=== PATIENT | male | born 1940 | race Caucasian/White ===

== ENCOUNTER 2018-06-27 15:53 | Inpatient (IN) ==
[2018-06-27] MEDS ORDERED: TYLENOL PO PRN (16:42)
--- NOTE | 2018-06-27 17:22 | Diag Imaging Result Doc PS360 ---
HIP 1 VIEW RIGHT - 06/27/2018 INDICATION: right hip fx TECHNIQUE: COMPARISON: None FINDINGS: Detail is extremely poor. There appears to be subcapital right hip fracture. IMPRESSION: Very poor x-ray. Electronically signed by Enrique Ruff 06/27/2018 5:20 PM
--- NOTE | 2018-06-27 17:22 | Diag Imaging Result Doc PS360 ---
CHEST-PORTABLE - 06/27/2018 INDICATION: r/o pna COMPARISON: None FINDINGS: There is subtle infiltrate throughout the left lung base and system with pneumonia. Arch size is top normal. No pneumothorax or pleural effusion. IMPRESSION: Left basilar bronchopneumonia. Electronically signed by Enrique Ruff 06/27/2018 5:19 PM
--- NOTE | 2018-06-27 17:29 | HISTORY AND PHYSICAL ---
HISTORY OF PRESENT ILLNESS: Mr. Brown is from [facility]. He has been there a couple years. Apparently he fell and struck his right hip and has a right hip fracture Dr. Cuenca to hopefully repair the fracture in the morning. PAST MEDICAL HISTORY: 1. Dementia, which he has had for several years. This history is given by his . 2. Anxiety disorder with panic attacks. 3. Peptic ulcer disease. 4. Gastric or peptic ulcer disease. 5. He has had a CVA in the past. 6. Hypertension. 7. Hypercholesterolemia, which is controlled. SURGICAL HISTORY: Inguinal hernia repair in I think February 2000. He had some axillary cysts removed, I think from the right axilla. SOCIAL HISTORY: Quit smoking 30 years ago. History of heavy alcohol, but has not drank in several years. He is at [facility]. REVIEW OF SYSTEMS: Constitutional: She has not reported anything that she has noticed, such as weight gain or loss. No fever or chills. HEENT: Change in vision or hearing acuity. Neck: No complaints of neck pain. Respiratory: No increased work of breathing or dyspnea. Cardiovascular: No chest pain or tachy palpitation. Gastrointestinal and Genitourinary: She has not mentioned any change in bowel or bladder habits. Endocrinologic/hematologic : No significant history. She did report that his ankles do swell, they do have a little swelling now, and they have been that way for several years. PHYSICAL EXAMINATION: VITAL SIGNS: Temperature 97.8 degrees, pulse 86, respirations 20, blood pressure 148/57. HEENT: Pupils are equal and round. LUNGS: Clear in all lung gay. CARDIOVASCULAR: Regular rhythm and rate without murmur or S3. ABDOMEN: Soft, nondistended. SKIN: Warm and dry. EXTREMITIES: He does have just trace edema that is confined to the ankles. DIAGNOSTIC STUDIES: Lab is pending at this time. ASSESSMENT AND PLAN: 1. Right hip fracture. Hopefully, he can be ready for open reduction, internal fixation in the morning with Dr. Cuenca. 2. History of dementia. 3. History of anxiety. 4. Past history of cerebrovascular accident. 5. Hypertension. 6. Hypercholesterolemia. We will check general lab, electrolytes, CBC, T4 and TSH, B12, and folate. Make sure he has a chest x-ray and EKG. We will check pro-time and PTT. He is not on any anticoagulant, I do not believe. Review of his home medications. I do not know that we have those yet. ALLERGIES: He is allergic to ibuprofen but I think she was referring to his gastric bleeding from ibuprofen. No other allergies. cc: Edu Ruelas MD MTDD
[2018-06-27 17:45] LABS: BASO# 0.03 X1000 (0.0-0.2); BASO% 0.5 % (0.0-0.8); HEMATOCRIT 29.1 % (42.0-52.0); HEMOGLOBIN 9.2 g/dL (14.0-18.0); LYMPH# 1.06 X1000 (1.2-3.4); LYMPH% 18.6 % (20.5-51.1); MCHC 31.6 g/dL (33-37); MCV 88.7 FL (81-99); MONO# 1.02 X1000 (0.11-0.59); MONO% 17.9 % (1.7-9.3); MPV 9.1 FL (7.4-10.4); NEUT# 3.19 X1000 (1.4-6.5); PLT 321 X1000 (130-400); RBC 3.28 XMIL (4.7-6.1)
[2018-06-27 17:52] LABS: INR 1.06; PROTIME 14.7 Seconds (11.0-16.0)
[2018-06-27 17:53] LABS: PTT 34.5 Seconds (22.3-41.8)
[2018-06-27 18:03] LABS: HEMOGLOBIN A1C 4.8 % (4.8-6.0)
[2018-06-27 18:06] LABS: URINE SOURCE CATH
[2018-06-27 18:27] LABS: BILIRUBIN URINE NEGATIVE (NEGATIVE); BLOOD URINE SMALL (NEGATIVE); COLOR YELLOW; GLUCOSE URINE NEGATIVE (NEGATIVE); KETONE URINE NEGATIVE (NEGATIVE); LEUKOCYTES URINE NEGATIVE (NEGATIVE); NITRITE URINE NEGATIVE (NEGATIVE); PROTEIN URINE 50 mg/dL (NEGATIVE); SP GRAVITY URINE 1.027; TURBIDITY URINE CLEAR (CLEAR); UROBILINOGEN URINE 4 mg/dL (NORMAL)
[2018-06-27 18:27] LABS: AGAP 9; ALB/GLOB RATIO 0.8; ALBUMIN 2.8 g/dL (3.5-5.0); ALKALINE PHOSPHATASE 82 U/L (32-122); BUN 25 mg/dL (8-22); CALCIUM 8.7 mg/dL (8.8-10.2); CHLORIDE 100 mmol/L (98-107); COSMO 272; ESTIMATED GFR > 60; GLUCOSE 115 mg/dL (70-104); GOT 32 U/L (10-34); GPT 22 U/L (10-44); POTASSIUM 3.9 mmol/L (3.5-5.1); SODIUM 133 mmol/L (136-145); TCO2 24 mmol/L (25-35); TOTAL BILIRUBIN 0.57 mg/dL (0.20-1.00); TOTAL PROTEIN 6.5 g/dL (6.3-8.3)
[2018-06-27 18:30] LABS: URINE BACTERIA NEGATIVE /HPF; URINE RBC <10 /HPF (<10); URINE WBC <10 /HPF (<10)
[2018-06-27 18:43] LABS: FREE T4 1.46 ng/dL (0.93-1.70)
[2018-06-27 18:49] LABS: UR EPITHELIAL CELLS <10 /HPF (<10)
[2018-06-27] MEDS ORDERED: CALMOSEPTINE OINTMENT TOP PRN (19:16)
[2018-06-27] MEDS: NS 1,000 ML IV SCH (19:43)
[2018-06-27] MEDS: MORPHINE IV PRN (22:45)
[2018-06-28] MEDS: MORPHINE IV PRN ×4 (01:46→09:38)
[2018-06-28] MEDS: NS 1,000 ML IV SCH (06:40)
[2018-06-28 06:49] LABS: BASO# 0.01 X1000 (0.0-0.2); BASO% 0.2 % (0.0-0.8); EOS# 0.25 X1000 (0.0-0.7); EOS% 4.1 % (0.0-10.0); HEMATOCRIT 26.4 % (42.0-52.0); HEMOGLOBIN 8.5 g/dL (14.0-18.0); LYMPH# 1.12 X1000 (1.2-3.4); LYMPH% 18.5 % (20.5-51.1); MCH 28.2 PG (27-31); MCHC 32.2 g/dL (33-37); MCV 87.7 FL (81-99); MONO# 1.23 X1000 (0.11-0.59); MONO% 20.3 % (1.7-9.3); MPV 8.9 FL (7.4-10.4); NEUT# 3.46 X1000 (1.4-6.5); NEUT% 56.9 % (42.2-75.2); PLT 308 X1000 (130-400); RBC 3.01 XMIL (4.7-6.1); RDW 12.7 % (11.5-14.5); WBC 6.07 X1000 (4.8-10.8)
[2018-06-28 06:50] LABS: INR 1.1; PROTIME 15.1 Seconds (11.0-16.0)
[2018-06-28 06:51] LABS: PTT 36.5 Seconds (22.3-41.8)
--- NOTE | 2018-06-28 07:17 | EKG Report ---
Test Performed on : 06/27/2018 5:35:45 PM Test Reason : preop hip sx Blood Pressure : / mmHG Vent. Rate : 098 BPM Atrial Rate : 098 BPM P-R Int : 144 ms QRS Dur : 076 ms QT Int : 342 ms P-R-T Axes : 073 057 069 degrees QTc Int : 436 ms Normal sinus rhythm. Normal ECG No previous ECGs available Confirmed by Abdulkadir HAWTHORNE, Cristian Ty ([id number]) on 06/29/2018 6:47:17 AM
[2018-06-28 07:18] LABS: AGAP 9; ALB/GLOB RATIO 0.8; ALBUMIN 2.6 g/dL (3.5-5.0); ALKALINE PHOSPHATASE 71 U/L (32-122); BUN 21 mg/dL (8-22); CALCIUM 8.2 mg/dL (8.8-10.2); CHLORIDE 104 mmol/L (98-107); COSMO 275; CREATININE 0.9 mg/dL (0.7-1.2); ESTIMATED GFR > 60; GLUCOSE 98 mg/dL (70-104); GOT 30 U/L (10-34); GPT 20 U/L (10-44); MAGNESIUM 1.8 mg/dL (1.5-2.7); POTASSIUM 4.1 mmol/L (3.5-5.1); SODIUM 136 mmol/L (136-145); TCO2 23 mmol/L (25-35); TOTAL BILIRUBIN 0.64 mg/dL (0.20-1.00)
--- NOTE | 2018-06-28 07:30 | CONSULTATION ---
DATE OF CONSULTATION: 06/28/2018 HISTORY OF PRESENT ILLNESS: Mr. Brown is a 77-year-old male who presented to my clinic yesterday afternoon with right hip pain. He resides at [facility], and there had been a fall, and he could not bear weight and so they brought him into the clinic. Most of his pain is at the right hip. Pain is worse with any movement. In the clinic, I diagnosed him with a displaced femoral neck fracture and sent him over to admissions to be admitted per the hospitalist service. PAST MEDICAL HISTORY: Dementia, anxiety, peptic ulcer disease, cerebrovascular accident in the past, hypertension. PAST SURGICAL HISTORY: Hernia repair. SOCIAL HISTORY: He denies any smoking or alcohol use. He resides at [facility]. MEDICATIONS: Per the medical record. ALLERGIES: His allergies are to ibuprofen. REVIEW OF SYSTEMS: Positive for right hip pain. All other systems are essentially negative. PHYSICAL EXAMINATION: General: A well-developed male. He is in no acute distress this morning. HEENT and Neck: Head and neck appear normocephalic, atraumatic. Respirations: Nonlabored breathing. Cardiovascular: Regular pulse. Abdomen: Nondistended. Extremities: Right lower extremity exam, he has the hip flexed. It is tender to palpation at the hip. He is able to dorsiflex and plantar flex his toes and his ankle. He has good sensation to light touch to the toes. No skin ulcerations or abrasions seen around the hip. RADIOGRAPHS: AP radiograph from the hospital here shows a displaced femoral neck fracture. ASSESSMENT: Right femoral neck fracture. PLAN: We will plan on a right hip hemiarthroplasty today. I went over with him and his the procedure, risks, benefits, potential complications. Risks include, but are not limited to, infection, wound healing problems, damage to nerves, arteries, veins, numbness, dislocation, fracture, implant failure, DVT and anesthesia related risks. After discussing these with the patient and his , both expressed understanding and wished to proceed, so we will get everything set for today. He is n.p.o. cc: Wolf Cuenca MD
--- NOTE | 2018-06-28 09:26 | PROGRESS NOTE ---
DATE: 04/27/2019 Mr. Brown did not sleep much last night. He appears comfortable this morning. OBJECTIVE: VITAL SIGNS: Remains afebrile. Temperature 99 degrees, pulse 84, respirations 16, blood pressure 154/70. HEENT: Pupils are equal and round. LUNGS: Clear in all lung gay. CARDIOVASCULAR: Regular rhythm and rate without murmur or S3. ABDOMEN: Soft. SKIN: Warm and dry. Urine output 1100 mL. ASSESSMENT AND PLAN: 1. Right femoral neck fracture. Plan is right hip hemiarthroplasty today. 2. Dementia. 3. Anxiety. 4. History of cerebrovascular accident. 5. Hypertension. 6. Hypercholesterolemia. Hematocrit is 26, hemoglobin 8.5 and we will follow that. Renal function looks good. cc: Edu Ruelas MD
[2018-06-28] MEDS ORDERED: FENTANYL ONE (14:42)
[2018-06-28] MEDS ORDERED: DIPRIVAN 1% ONE (14:43)
[2018-06-28] MEDS ORDERED: XYLOCAINE-MPF 2% ONE (14:43)
[2018-06-28] MEDS ORDERED: KEFZOL 1 GM/D5W 1 GM/50 ML IVPB ONE (14:59)
[2018-06-28] MEDS ORDERED: SALINE LOCK IV FLUID XX ONE (16:30)
[2018-06-28] MEDS ORDERED: OXY IR PO PRN (16:30)
[2018-06-28] MEDS: DILAUDID ONE ×4 (16:50→17:03)
--- NOTE | 2018-06-28 17:22 | Diag Imaging Result Doc PS360 ---
EXAM: PELVIS HISTORY: postop TECHNIQUE: Pelvis single view COMPARISON: 06/27/2018 FINDINGS: Interval replacement of the right hip. There appears to be good positioning in the acetabulum and upper femoral shaft. There are lateral skin allyn. IMPRESSION: Recently replaced right hip. Electronically signed by Tuan Celis 06/28/2018 5:20 PM
--- NOTE | 2018-06-28 19:45 | OPERATIVE NOTE ---
PROCEDURE DATE: 06/28/2018 PREOPERATIVE DIAGNOSIS: Right displaced femoral neck fracture. POSTOPERATIVE DIAGNOSIS: Right displaced femoral neck fracture. PROCEDURE: Right hip hemiarthroplasty. SURGEON: Dr. Wolf Cuenca. FINANCIAL SERVICES COUNSELOR: SATHYA Hand, who was an integral part of the case, helping with all aspects of the case, helped to increase our OR efficiency greatly. ANESTHESIA: General with LMA. BLOOD LOSS: About 600 mL. IMPLANTS: DePuy Corail stem size 13 and a 52 head. DISPOSITION: To PACU, hemodynamically stable. INDICATION FOR PROCEDURE: Mr. Brown is a 77-year-old male, really non ambulator, he mainly just transfers, end up falling and fractured his right hip. He was admitted per the hospitalist service. I discussed with his family about operative intervention. They expressed their understanding and wished to proceed. DESCRIPTION OF PROCEDURE: Mr. Brown was identified in the preop holding area. The right hip was marked as the correct surgical site. He was then wheeled to the operating room, placed supine on the operating table. All bony prominences well padded. He was induced under general anesthesia. LMA was placed. The right lower extremity was then prepped with chlorhexidine, gluconate, scrub. He was then flipped to the left lateral decubitus position. Axillary roll was placed. Right lower extremity was then prepped with chlorhexidine, gluconate scrub, and then ChloraPrep, and draped in normal sterile fashion. He was extremely tight, even trying a raises leg. He did have a hip flexion contracture but also an adduction flexion contracture. Surgical pause was performed. We identified the correct patient, correct side, and the correct procedure. Preop antibiotics were given. I started with a standard posterior approach to the hip. Dissection was carried down to the deep fascia. I went through the deep fascia. We came down on the short external rotators. I came to the short external rotators and then came down to the neck of the femur. I T'd the capsule and was able to identify the fracture really well. I then got the head out and sized it to a 52. I sequentially broached up to a size 13. First we tried the trial but it was very tough to get as he was really contracted down. So I ended up working with the broaches and ended getting that 13 sunk down a little bit further and was able to then get it reduced. We decided to go with a size 13 stem and then a 52 head. We irrigated everything copiously with normal saline. I then was able to get the stem in and then put the head on, we reduced it. He was still pretty tight in abduction but he was very stable all the way up through hip flexion and internal rotation. He did have a hip flexion contracture as well, but I could get him out pretty straight on that hip. I then repaired the capsule with 0 Vicryl. I repaired the deep fascia layer with 0 Vicryl, 2-0 Vicryl for the subcutaneous, and allyn on the skin. Adaptic, 4 x 4s, ABD, and an island dressing was applied. He was then awoke from general anesthesia, moved to his own bed, and taken to the PACU in stable condition. Postoperatively, he will be weight-bear as tolerated to the right lower extremity. I will see him tomorrow morning on rounds. cc: Wolf Cuenca MD
[2018-06-29] MEDS: KEFZOL 1 GM/D5W 1 GM/50 ML IVPB IV SCH ×3 (00:02→16:00)
[2018-06-29] MEDS: MORPHINE IV PRN ×7 (00:13→21:37)
[2018-06-29] MEDS: NS 1,000 ML IV SCH ×3 (04:38→17:12)
[2018-06-29 07:06] LABS: HEMATOCRIT 25.5 % (42.0-52.0); HEMOGLOBIN 8.2 g/dL (14.0-18.0)
[2018-06-29 07:26] LABS: AGAP 9; BUN 26 mg/dL (8-22); CALCIUM 8.4 mg/dL (8.8-10.2); CHLORIDE 101 mmol/L (98-107); COSMO 277; CREATININE 0.9 mg/dL (0.7-1.2); ESTIMATED GFR > 60; GLUCOSE 143 mg/dL (70-104); POTASSIUM 4.6 mmol/L (3.5-5.1); SODIUM 135 mmol/L (136-145); TCO2 25 mmol/L (25-35)
--- NOTE | 2018-06-29 08:04 | PROGRESS NOTE ---
DATE: 06/29/2018 SUBJECTIVE: Mr. Brown is lying in bed this morning. Pain seems to be well controlled. OBJECTIVE: Right lower extremity: Dressing is clean, dry, and intact. He is able to wiggle his toes this morning very well. ASSESSMENT: Status post right hip hemiarthroplasty. PLAN: Mr. Brown is weight bear as tolerated right lower extremity. I am okay with physical therapy working to get him mobilized. Buck Swamper will be seeing him for discharge placement. From orthopedic standpoint, I am okay with him getting up, seated to a bedside chair, and they can get him up for transfers. Apparently, he has not really walked in the past several months, even before he fractured this hip. It is going to be a little bit difficult to mobilize him, but I do want physical therapy working to get him out of bed. cc: Wolf Cuenca MD
--- NOTE | 2018-06-29 15:28 | PROGRESS NOTE ---
DATE: 06/29/2018 SUBJECTIVE: Mr. Brown is resting comfortably. He had his surgery. His granddaughter was at the bedside. He appears comfortable, breathing comfortably. Sleeping at the present time. OBJECTIVE: Vital Signs: Temperature 98.7, pulse 109, respirations 24, blood pressure 165/73. HEENT: Pupils are equal and round. Lungs: Clear in all lung gay. Cardiovascular: Regular rhythm and rate without murmur or S3. Abdomen: Soft. Skin: Warm and dry. Urine Output: 1800 mL. ASSESSMENT AND PLAN: 1. Status post right hip hemiarthroplasty, doing well. Begin physical therapy and get him mobilized. 2. Postoperative acute blood loss anemia. Hematocrit stable at 25, hemoglobin 8.2. We will watch this. 3. History of dementia. 4. Anxiety. 5. History of cerebrovascular accident. 6. Hypertension. 7. Hypercholesterolemia. Continue present medications. cc: Edu Ruelas MD
[2018-06-29] MEDS: HALDOL IV PRN (18:05)
[2018-06-30] MEDS: NS 1,000 ML IV SCH ×2 (04:37→17:00)
[2018-06-30 06:34] LABS: HEMATOCRIT 23.2 % (42.0-52.0); HEMOGLOBIN 7.5 g/dL (14.0-18.0)
[2018-06-30] MEDS: MORPHINE IV PRN ×6 (07:50→20:59)
[2018-06-30] MEDS: HALDOL IV PRN ×3 (09:38→21:34)
--- NOTE | 2018-06-30 10:33 | PROGRESS NOTE ---
DATE: 06/30/2018 SUBJECTIVE: Mr. Brown feels a little warm to touch. He otherwise is awake and seems to be alert. He is oriented to person. I do not know that he knows he is in the hospital. OBJECTIVE: Temperature 97.9 degrees, pulse 106, respirations 20, blood pressure 172/85. HEENT: Pupils are equal and round. Lungs: Clear in all lung gay. Cardiovascular: Regular rhythm and rate without murmur or S3. Abdomen: Soft. Skin: Warm and dry. ASSESSMENT AND PLAN: 1. Status post right hip hemiarthroplasty doing well. Continue physical therapy. Trying to get him back to [place] to try and go to rehab in [place]. He is from [place] long-term. 2. Postoperative acute blood loss anemia. Hematocrit and hemoglobin stable. Hematocrit is 23 and hemoglobin 7.5. 3. History of dementia. 4. Anxiety. 5. History of cerebrovascular accident. 6. Hypertension. 7. Hypercholesterolemia. 8. He had a chest x-ray back on the , and questionable left basilar bronchial pneumonia so we will repeat another chest x-ray today. 9. Review of his orders. I think we will put him on some Rocephin 1 g IV daily. Repeat another chest x-ray this morning. cc: Edu Ruelas MD
--- NOTE | 2018-06-30 10:48 | Diag Imaging Result Doc PS360 ---
EXAM: CHEST-PORTABLE HISTORY: pneumonia TECHNIQUE: Portable chest single view COMPARISON: 06/27/2018 FINDINGS: The lungs are well expanded. The heart is not enlarged. The vessels are mildly distended. No consolidation. Minimal increased markings in the left lung remain.. No effusion identified. IMPRESSION: Mild pulmonary edema, but no definite pneumonia Electronically signed by Tuan Celis 06/30/2018 10:46 AM
[2018-06-30] MEDS: ROCEPHIN 1 GM in NS 50 ML IV SCH (11:34)
[2018-06-30] MEDS: PERIDEX MT SCH ×2 (11:40→21:00)
[2018-06-30] MEDS: ZOFRAN IV PRN (20:59)
[2018-06-30] MEDS ORDERED: MELATONIN PO SCH (21:30)
[2018-07-01] MEDS: ZOFRAN IV PRN ×2 (03:53→20:04)
[2018-07-01] MEDS: MORPHINE IV PRN ×3 (03:53→20:04)
[2018-07-01] MEDS: NS 1,000 ML IV SCH ×3 (03:54→20:03)
[2018-07-01 06:54] LABS: HEMATOCRIT 21.7 % (42.0-52.0); HEMOGLOBIN 7.1 g/dL (14.0-18.0)
[2018-07-01] MEDS: ROCEPHIN 1 GM in NS 50 ML IV SCH ×2 (08:12→10:19)
[2018-07-01] MEDS: PERIDEX MT SCH ×2 (08:15→19:40)
[2018-07-01] MEDS: HALDOL IV PRN ×2 (08:18→17:09)
--- NOTE | 2018-07-01 09:37 | PROGRESS NOTE ---
DATE: 07/01/2018 SUBJECTIVE: Mr. Brown had a pretty good night. Did not have much delirium or agitation. This morning he appears to be breathing comfortably. He remains afebrile. He is oriented to person. Not sure he knows where he is. Does not know the time or date. OBJECTIVE: Vital signs: Temp 98.6 degrees, pulse 107, respirations 22, blood pressure 167/67. HEENT: His pupils are equal. Neck: No distended neck veins. Lungs: Clear in all lung gay. Cardiovascular: Regular rhythm and rate without murmur or S3. Abdomen: Soft. Nondistended. Extremities: No pedal edema. Urine output was 4000 mL. LABORATORY: Hematocrit from yesterday was 21, hemoglobin 7.1 which is stable. ASSESSMENT AND PLAN: 1. Status post right hip hemiarthroplasty. Doing well. Continue physical therapy. [facility] and get [facility]. He has underlying dementia and long history of anxiety. 2. Postoperative acute blood loss. Hematocrit and hemoglobin are stable. Hematocrit is 23 and hemoglobin 7.5. 3. History of dementia which is fairly progressed. Doing very well from that standpoint. 4. Anxiety. 5. History of cerebrovascular accident in the past. 6. Hypertension. 7. Hypercholesterolemia. 8. We have followed up on his chest x-ray and there is mild pulmonary edema but no sign infiltrate and no sign of infection. 9. Review of his orders. He gets oxycodone IR 5 mg q.3 hours p.r.n. and he is getting normal saline at 85 mL an hour, ceftriaxone 1 g q.24 hours. I am going to decrease the normal saline. cc: Edu Ruelas MD
[2018-07-02] MEDS: MORPHINE IV PRN ×2 (01:26→06:21)
[2018-07-02] MEDS: PERIDEX MT SCH ×2 (04:01→10:44)
[2018-07-02] MEDS: ZOFRAN IV PRN (06:21)
[2018-07-02] MEDS: ROCEPHIN 1 GM in NS 50 ML IV SCH (10:55)
--- NOTE | 2018-07-02 13:36 | DISCHARGE SUMMARY ---
ADMISSION DATE: 06/27/2018 DISCHARGE DATE: 07/02/2018 DISPOSITION: [facility], which is where he is from. HISTORY: This is a 77-year-old white male. He has been at [facility] for a couple of years. He fell and struck his right hip and had a right hip fracture. Dr. Cuenca repaired the fracture. Admitted on 06/27/2018. PAST MEDICAL HISTORY: 1. Dementia which is fairly progressed. He has had this for several years. 2. Anxiety disorder with panic attacks in the past. 3. Peptic ulcer disease. 4. Gastric and peptic ulcer disease. 5. He has had a CVA in the past. 6. Hypertension. 7. Hypercholesterolemia which has been controlled. HOSPITAL COURSE: So, admitted with right hip fracture. He had repair on 06/28/2018, right hip hemiarthroplasty. He tolerated it well. Was begun on some physical therapy. Because of his dementia, this has been slow. His chest x-ray on 06/30, no sign of pneumonia. He had some mild pulmonary edema. His breathing, respiratory status has been good. Follow-up lab, hematocrit 21, hemoglobin 7.1 and has been fairly stable. Kidney function looks good. So, I think he can go back to [place] to finish rehab. DISCHARGE MEDICATIONS: He can have Tylenol 650 q.6 hours p.r.n. pain. He can have his Oxy IR 5 mg and I will make that q.3 hours p.r.n. pain for a couple weeks. As far as his home medications before, we will put him back on his amlodipine 5 mg a day, Atorvastatin 40 mg a day, clonazepam 1 mg daily, donepezil 5 mg a day, escitalopram 5 mg daily, lisinopril 20 mg a day, Memantine 5 mg daily. He will take his daily iron once a day, Protonix 40 mg twice a day, and MiraLAX 17 g a day. I think he was taking Carafate 2000 mg p.o. twice a day. cc: Edu Ruelas MD
--- NOTE | 2018-07-02 14:12 | Diag Imaging Result Doc PS360 ---
EXAM: KUB ABDOMEN INDICATION: Check for stool TECHNIQUE: 2 views COMPARISON: None. FINDINGS: There are nonspecific moderate gaseous distention loops of bowel. Most of this is colonic. There is also some at least mild small bowel distention. There is a small to moderate amount of stool in the colon and rectum. There is no evidence of large volume free abdominal gas. There has been a prior right hip arthroplasty. Skin allyn project of the right hip. IMPRESSION: Nonspecific moderate gaseous distention of bowel. Electronically signed by Shelton Serna 07/02/2018 2:10 PM
[2018-07-02 15:02] VITALS: BP 146/82
== END 2018-07-02 15:55 | DRG 470 ==
LOC: 4N 15:53
PROVIDERS: ATTEND Emergency Medicine
CPT/HCPCS: 71010; 71045; 72170; 73500; 73501; 74000; 74018; 80048; 80053; 80061; 81001; 82550; 82607; 82746; 82948; 83036; 83605; 83721; 83735; 83880; 84439; 84443; 84484; 85014; 85018; 85025; 85610; 85730; 86850; 86900; 86901; 87040; 88305; 88311; 93005; 93010; 94761; 97110; 97162; A9270; J0690; J0696; J1170; J1630; J2270; J2405; J3010; J7030; XXXXX

== ENCOUNTER 2018-07-16 22:03 | Inpatient (IN) ==
[2018-07-16 23:13] LABS: BASO# 0.02 X1000 (0.0-0.2); BASO% 0.1 % (0.0-0.8); EOS# 0.03 X1000 (0.0-0.7); EOS% 0.2 % (0.0-10.0); HEMOGLOBIN 8.7 g/dL (14.0-18.0); IMM GRAN# 0.05 X1000 (0.0-0.04); IMM GRAN% 0.3 % (0.0-0.5); LYMPH# 1.01 X1000 (1.2-3.4); LYMPH% 6.2 % (20.5-51.1); MCH 26.2 PG (27-31); MCV 87.3 FL (81-99); MONO# 1.59 X1000 (0.11-0.59); MONO% 9.8 % (1.7-9.3); MPV 9.3 FL (7.4-10.4); NEUT# 13.47 X1000 (1.4-6.5); NEUT% 83.4 % (42.2-75.2); PLT 669 X1000 (130-400); RBC 3.32 XMIL (4.7-6.1); RDW 14.7 % (11.5-14.5); WBC 16.17 X1000 (4.8-10.8)
[2018-07-16 23:14] LABS: URINE SOURCE CATH
[2018-07-16 23:20] LABS: BILIRUBIN URINE NEGATIVE (NEGATIVE); BLOOD URINE SMALL (NEGATIVE); COLOR YELLOW; GLUCOSE URINE NEGATIVE (NEGATIVE); KETONE URINE 10 mg/dL (NEGATIVE); LEUKOCYTES URINE NEGATIVE (NEGATIVE); NITRITE URINE NEGATIVE (NEGATIVE); PH URINE 5.5; PROTEIN URINE 50 mg/dL (NEGATIVE); SP GRAVITY URINE 1.026; TURBIDITY URINE CLEAR (CLEAR); UROBILINOGEN URINE 3 mg/dL (NORMAL)
[2018-07-16 23:21] LABS: UR EPITHELIAL CELLS <10 /HPF (<10); URINE BACTERIA NEGATIVE /HPF; URINE WBC <10 /HPF (<10)
[2018-07-16 23:47] LABS: AGAP 10; BUN 37 mg/dL (8-22); CALCIUM 9.6 mg/dL (8.8-10.2); CHLORIDE 109 mmol/L (98-107); COSMO 304; CREATININE 1.1 mg/dL (0.7-1.2); ESTIMATED GFR > 60; GLUCOSE 116 mg/dL (70-104); POTASSIUM 4.9 mmol/L (3.5-5.1); SODIUM 148 mmol/L (136-145); TCO2 29 mmol/L (25-35)
[2018-07-16] MEDS ORDERED: LOPRESSOR PO ONE (23:52)
[2018-07-16] MEDS ORDERED: ROCEPHIN 1 GM in NS 50 ML IV ONE (23:53)
[2018-07-16] MEDS ORDERED: ASPIRIN PO ONE (23:53)
[2018-07-16] MEDS ORDERED: NS 500 ML IV ONE (23:59)
[2018-07-17] MEDS ORDERED: ZOSYN 4.5 GM in NS 100 ML IV ONE (00:17)
[2018-07-17] MEDS ORDERED: VANCOMYCIN 1 GM/NS 1 GM/250 ML IVPB IV ONE (00:17)
--- NOTE | 2018-07-17 00:37 | PROVIDER DOCUMENTATION ---
This chart was entered by Sammy Parisi Scribe, acting as scribe for Vanessa Ackerman MD. HPI-Fever - General Stated Complaint: SOB Time Seen by Provider: 07/16/18 22:26 Source: retirement records Unable to obtain history due to:: altered Allergies/Adverse Reactions: Patient Allergies Allergy/AdvReac Type Severity Reaction Status Date / Time ibuprofen AdvReac Intermediate Unknown Verified 06/27/18 18:11 Home Medications: Home Medication List Medication Instructions Recorded Confirmed Last Taken Type Acetaminophen 1,000 mg PO Q8H PRN PRN 06/28/18 06/28/18 Unknown History Amlodipine Besylate 5 mg PO HS 06/28/18 06/28/18 Unknown History Atorvastatin Calcium 40 mg PO DAILY 06/28/18 06/28/18 Unknown History Donepezil HCl 5 mg PO DAILY 06/28/18 06/28/18 Unknown History Escitalopram Oxalate 5 mg PO DAILY 06/28/18 06/28/18 Unknown History Lisinopril 20 mg PO DAILY 06/28/18 06/28/18 Unknown History Memantine HCl 5 mg PO DAILY 06/28/18 06/28/18 Unknown History Multivitamin with Iron [Daily 1 each PO DAILY 06/28/18 06/28/18 Unknown History Vitamin + Iron] Pantoprazole Sodium 40 mg PO BID 06/28/18 06/28/18 Unknown History Polyethylene Glycol 3350 [Miralax] 17 gm PO DAILY 06/28/18 06/28/18 Unknown History Sucralfate 2,000 mg PO BID 06/28/18 06/28/18 Unknown History Acetaminophen [Tylenol] 650 mg PO Q6H PRN PRN tablet 07/02/18 Unknown Rx Chlorhexidine Gluconate [Peridex] 15 ml MT BID udc 07/02/18 Unknown Rx Clonazepam 1 mg PO DAILY 30 Days #30 tab 07/02/18 Unknown Rx Oxycodone I.r. [Oxy Ir] 5 mg PO Q3H PRN PRN 10 Days #20 tab 07/02/18 Unknown Rx - History of Present Illness-Fever Nature of Presenting Problem: Pt is a 77 y/o M sent to the ED by SNF for a fever cough. SNF also report that pt has had a cough and increased secretions. Pt non-verbal at baseline and unable to provide any history. Fever Severity/Quality: reports: other (Unsure) Timing: reports: gone now Context: reports: decreased mental status Cognitive Baseline: poor alertness Review of Systems - Adult - REVIEW OF SYSTEMS - ADULT ROS:: limited per condition Constitutional: reports: fever. denies: chills Past History - Adult - PAST MEDICAL HISTORY-ADULT Review of Records: reports: Old Records Reviewed, Nursing Assessment Review, Medications Reviewed - SOCIAL HISTORY Smoking: non-smoker Living Situation: care facility Physical Exam-General - PHYSICAL EXAM-ADULT Initial Vital Signs Reviewed: Yes - CONSTITUTIONAL General Appearance: alert, no apparent distress, other (chronically ill appearing) - EYES Eyes: PERRL/EOMI, pink conjunctivae - HEAD, EARS, NOSE, MOUTH & THROAT HENMT: moist mucous membranes, normal ENT inspection, pharynx normal - NECK Neck: non-tender, full range of motion, supple - RESPIRATORY Respiratory: lungs clear, normal breath sounds - CARDIOVASCULAR Cardiovascular: normal peripheral pulses, regular rate, rhythm - GASTROINTESTINAL (ABDOMEN) Abdominal Exam: normal bowel sounds, soft - MUSCULOSKELETAL Extremity: negative: normal inspection (Pt has compression stocking hose bilateral lower extremity, with a wedge present between legs.) - SKIN Integumentary: normal color, normal turgor, warm/dry - NEUROLOGIC Neurologic: other (nonverbal, moans and moves all 4 extremities equally, appears that this is baseline for pt) Progress - PLAN OF CARE/RESULTS Progress/Plan/Lab Results: Vital Signs - 8 hr 07/16/18 22:11 07/16/18 22:17 07/16/18 22:20 Temperature 98.1 F Pulse Rate 104 H Respiratory Rate 18 Blood Pressure 144/73 144/73 O2 Sat by Pulse Oximetry 97 97 97 07/16/18 22:30 07/16/18 22:40 07/16/18 22:44 Temperature Pulse Rate Respiratory Rate Blood Pressure 154/85 O2 Sat by Pulse Oximetry 98 97 100 07/16/18 22:50 07/16/18 23:00 07/16/18 23:10 Temperature Pulse Rate 110 H 110 H Respiratory Rate 19 27 H Blood Pressure O2 Sat by Pulse Oximetry 97 97 98 07/16/18 23:20 07/16/18 23:30 07/16/18 23:40 Temperature Pulse Rate 112 H 111 H 112 H Respiratory Rate 19 24 24 Blood Pressure 154/85 O2 Sat by Pulse Oximetry 99 99 100 07/16/18 23:50 07/17/18 00:00 Temperature Pulse Rate 110 H 115 H Respiratory Rate 17 18 Blood Pressure 163/75 O2 Sat by Pulse Oximetry 98 99 07/16/18 22:30 Influenza Screen - Final Nasopharyngeal Laboratory Results - last 24 hr 07/16/18 07/16/18 07/16/18 22:30 22:30 22:30 WBC 16.17 H RBC 3.32 L Hgb 8.7 L Hct 29.0 L MCV 87.3 MCH 26.2 L MCHC 30.0 L RDW Std Deviation 14.7 H Plt Count 669 H MPV 9.3 Immature Gran % (Auto) 0.3 Neut % (Auto) 83.4 H Lymph % (Auto) 6.2 L [place] % (Auto) 9.8 H Eos % (Auto) 0.2 Baso % (Auto) 0.1 Immature Gran # (Auto) 0.05 H Neut # (Auto) 13.47 H Lymph # (Auto) 1.01 L [place] # (Auto) 1.59 H Eos # (Auto) 0.03 Baso # (Auto) 0.02 Sodium 148 H Potassium 4.9 Chloride 109 H Carbon Dioxide 29 Anion Gap 10 BUN 37 H Creatinine 1.1 Estimated GFR/1.73 m2 > 60 BUN/Creatinine Ratio 34 Glucose 116 H Calculated Osmolality 304 Calcium 9.6 Troponin T Plasma Lactate 1.4 Urine Source Urine Color Urine Turbidity Urine pH Ur Specific [place] Urine Protein Ur Glucose (Stick) Ur Ketones (Stick) Urine Blood Urine Nitrite Urine Bilirubin Urobilinogen Dipstick Urine Leukocytes Urine WBC (Auto) Urine RBC (Auto) U Epithel Cells (Auto) Urine Bacteria (Auto) 07/16/18 07/16/18 22:30 23:05 WBC RBC Hgb Hct MCV MCH MCHC RDW Std Deviation Plt Count MPV Immature Gran % (Auto) Neut % (Auto) Lymph % (Auto) [place] % (Auto) Eos % (Auto) Baso % (Auto) Immature Gran # (Auto) Neut # (Auto) Lymph # (Auto) [place] # (Auto) Eos # (Auto) Baso # (Auto) Sodium Potassium Chloride Carbon Dioxide Anion Gap BUN Creatinine Estimated GFR/1.73 m2 BUN/Creatinine Ratio Glucose Calculated Osmolality Calcium Troponin T 0.096 H Plasma Lactate Urine Source CATH Urine Color YELLOW Urine Turbidity CLEAR Urine pH 5.5 Ur Specific [place] 1.026 Urine Protein 50 A Ur Glucose (Stick) NEGATIVE Ur Ketones (Stick) 10 A Urine Blood SMALL A Urine Nitrite NEGATIVE Urine Bilirubin NEGATIVE Urobilinogen Dipstick 3 A Urine Leukocytes NEGATIVE Urine WBC (Auto) <10 Urine RBC (Auto) 10-20 A U Epithel Cells (Auto) <10 Urine Bacteria (Auto) NEGATIVE Orders Category Date Time Status IV Insertion ORDERED Care 07/16/18 22:22 Completed Nursing- Obtain EKG once Care 07/16/18 22:22 Active Straight Catheterization ORDERED Care 07/16/18 22:22 Active cxr [CHEST-1 VIEW] [RAD] Stat Exams 07/16/18 22:22 Taken BASIC METABOLIC PANEL [CHEM] Stat Lab 07/16/18 22:30 Completed BLOOD CULTURE [BLDCUL] Stat Lab 07/16/18 22:30 Ordered CBC WITH DIFF [HEME] Stat Lab 07/16/18 22:30 Completed INFLUENZA SCREEN A/B Stat Lab 07/16/18 22:30 Completed LACTATE, PLASMA [CHEM] Stat Lab 07/16/18 22:30 Completed TROPONIN T Stat Lab 07/16/18 22:30 Completed URINALYSIS W/POSS RFLX CULT [URINALYSIS] Stat Lab 07/16/18 23:05 Completed 0.9% Sodium Chloride Inj [Ns] 500 ml Med 07/16/18 23:59 Active IV 999 mls/hr Aspirin Med 07/16/18 23:53 Discontinued 325 mg PO NOW ONE CefTRIAXONE [Rocephin] 1 gm Med 07/16/18 23:53 Discontinued 0.9% Sodium Chloride Inj [Ns] 50 ml IV NOW Metoprolol [Lopressor] Med 07/16/18 23:52 Discontinued 25 mg PO NOW ONE Piperacillin/Tazobactam [Zosyn] 4.5 gm Med 07/17/18 00:17 Active 0.9% Sodium Chloride Inj [Ns] 100 ml IV NOW Vancomycin 1 gm/Ns Med 07/17/18 00:17 Active 1 gm in 250 ml IV NOW EKG [EKG] Stat Ther 07/16/18 22:22 Ordered cough, with fever will further evaluate for causes including but not limited to pna, bronchitis, influenza, acs, chf, dehydration, electrolyte imbalance Result Diagrams: 07/16/18 22:30 07/16/18 22:30 - REASSESSMENT Reassessment #1 Status: unchanged (continued cough, CXR concerning for pna, normal lactate but with leukocytosis and tachycardia concernig for SIRS. vanco and zosyn given and as with mildly elevated troponin will also treat with aspirin and metoprolol. Will admit for further evaluation and treatment. Disussed case with Dr. Brewer , Hospitalist, who will see and admit pt) - EKG 1 Time of EKG reading by physician:: 22:53 EKG Read and Signed by:: Vanessa Ackerman EKG Interpretation (*Must complete 3 of following elements*): Abnormal Rate: 112 Rhythm: Sinus tachycardia with occasional PVC Comments: Otherwise normal ECG - XRAY 1 XRAY Study: Chest Impression: Abnormal (Blurring left lower lobe) - CONSULTS/PCP/HOSPITALIST Notification #1 *Consult/PCP/Hospitalist*: Hospitalist- Dr Brewer Time Discussed: 00:16 Reason/Comments: admission Consult Disposition: Admit (accepts) Departure - Departure Date of Disposition Decision: 07/17/18 Time of Disposition Decision: 00:36 DIAGNOSIS: Troponin level elevated Pneumonia Qualifiers: Pneumonia type: due to unspecified organism Laterality: left Lung location: lower lobe of lung Qualified Code(s): J18.1 - Lobar pneumonia, unspecified organism Disposition: ADMITTED INPATIENT 09 Certified Medical Emergency: Emergent Condition: Fair Referrals and Follow-Ups: Shelton Allen III, MD [Primary Care Provider] - - Critical Care Note This patient required my direct & personal management of CC.: No Attestation - Physician/ LIZ Attestation Patient care was provided by Advanced Practice Provider:: No The physician spent face to face time with patient:: Yes Advanced Practice Provider documentation review:: Supervising physician onsite and consulted in the evaluation and care of this patient. The physician did have a face to face encounter with the patient. This chart was documented by the indicated scribe, (Sammy Parisi Scribe) and accurately reflects the services I performed and decisions made by me, Vanessa Ackerman MD, as attested by the provider's signature.
[2018-07-17] MEDS ORDERED: ASPIRIN PR ONE (01:04)
[2018-07-17] MEDS ORDERED: LOPRESSOR IV ONE (01:04)
[2018-07-17] MEDS ORDERED: D5 NS 1,000 ML IV ONE (01:28)
[2018-07-17] MEDS ORDERED: VANCOMYCIN IV PER PHARMACY MISC SCH (02:43)
[2018-07-17] MEDS ORDERED: HALDOL IM ONE (03:10)
[2018-07-17] MEDS: NS 1,000 ML IV SCH ×2 (03:17→15:54)
[2018-07-17] MEDS: TYLENOL PO SCH ×2 (04:08→08:48)
[2018-07-17] MEDS ORDERED: VANCOMYCIN 1,700 MG in NS 250 ML IV ONE (05:00)
--- NOTE | 2018-07-17 06:19 | HISTORY AND PHYSICAL ---
PHYSICIAN: Patient of [facility]. REASON FOR ADMISSION: Two-day history of cough, fever and chest congestion. HISTORY OF PRESENT ILLNESS: Mr. Shannan Brown is an unfortunate 77-year-old man with past medical history of progressive severe dementia complicated with aphasia and dysphagia. He also has a history of a prior CVA, hypertension, hyperlipidemia, BPH and anxiety disorder. Last seen in our office three weeks ago for right hip repair after he fell and sustained a right hip fracture. He is pretty much bedbound and immobilized at this point in time. He was brought in today because of two-day history of progressive cough, intermittent fever and chest congestion. Patient is unable to give any history. His and daughter are at bedside and they can only give me a little history being that the [facility] is a [facility]. They have noticed not only that he has become aphasic, that his ability to swallow has declined. Oral intake has also suffered as a consequence of this. He is currently on a puree diet. He does notice on occasion he may choke on his meals every now and again. and daughter are not aware if he has any diarrhea or if there are any new focal symptoms. They said he is getting a little confused over the last couple of days, i.e. agitated. REVIEW OF SYSTEMS: Otherwise, positive findings as noted as above. ALLERGIES: Ibuprofen. MEDICATIONS: Home medications have not been reconciled. SOCIAL HISTORY: He does not smoke, drink or use illicit drugs. He is a [facility] patient. SURGICAL HISTORY: He has had inguinal hernia repair, right hip repair. FAMILY HISTORY: Not done due to patient's current cognitive state. LAB WORK: White count 16,000. Hemoglobin and hematocrit 8 and 29. Platelets 669. 82% neutrophils. Sodium 148. BUN is 37. Creatinine 1.1. Glucose 116. Troponin is 0.096. Lactate 1.4. Urinalysis: 10 to 20 RBCs, small blood, small ketones. Chest film reviewed by me. Normal size heart. No overt infiltrate noted. Flu screen negative. PHYSICAL EXAMINATION: VITAL SIGNS: Blood pressure 167/75, heart rate is 115, respiratory rate is 18, temperature is 98.1, he is on 2 L nasal cannula, 99%. GENERAL: Mr. Brown is a chronically ill, emaciated man who is alert but profoundly confused and agitated. Grab movement in his arms, trying to grab at things. He appears to be anxious. HEENT: Head is normocephalic, atraumatic. Eyes: PERRLA. EOMI. He is anicteric, mildly pale. ENT and oropharynx exam: He has moderate xerostomia. No oropharyngeal exudate. There is no cyanosis. NECK: Supple. No JVD noted. Decreased skin turgor is noted. No thyromegaly visualized. CHEST: Decreased entry in both lung gay. Patient is not taking a deep inspiratory effort. Did not appreciated any subtle findings. CARDIOVASCULAR: First and second heart sounds are heard. No gallops, murmurs or rubs. Rhythm is regular. ABDOMEN: Scaphoid, soft with no reproducible tenderness noted. No rebound or guarding. Bowel sounds are hypoactive. RECTAL: Exam deferred at this time. EXTREMITIES: Patient has significant decreased distal pulse volumes in all extremities. Irregular, symmetrical. No edema, clubbing or peripheral cyanosis. NEUROLOGICAL: No gross focal deficits appreciated. Moving all extremities spontaneously. SKIN: Intact and no overt breakdown, lesion or erythema. I did not evaluate his perineum or sacrum. MUSCULAR EXAM: Patient has severe sarcopenia. Patient's lower extremities, however, have been bound to soft foam to prevent movement so there can be appropriate healing of his right hip, since patient is apt to get up impulsively and may fall and reinjure the hip. ASSESSMENT: 1. Probable aspiration pneumonia. 2. Severe dehydration secondary to poor oral intake. 3. Alzheimer's disease. 4. History of hypertension. 5. Hyperlipidemia. 6. Abnormal cardiac enzymes. 7. Severe malnutrition secondary to poor oral intake. PLAN: At this point in time patient will be covered with broad spectrum antibiotics for nosocomial pathogens. Will aggressively hydrate patient with hypotonic fluid in the interim and revisit lab findings to determine if we can switch the patient to normal saline crystalloid fluids as maintenance. I had a discussion with the family and made them aware that his prognosis is poor. Patient does have a living will and they have agreed to make him a level 1 DNR. Will continue to implement supportive care for this patient. Patient's head needs to be kept up, elevated. Patient's cardiac enzymes are mildly elevated. However, I seriously doubt any aggressive intervention will be beneficial in this man as his immediate long- term prognosis is somewhat poor. Will trend troponin levels, however, and if there is a significant spike in these levels, we will get Cardiology input. One of the big issues that cause this patient's agitation may end up being pain and we will start patient on scheduled Tylenol to lower his pain threshold. Also other issues like constipation need to be also addressed in this patient, and any other issues that may cause patient to become agitated during the course of his stay and even after his departure. Speech therapist may need to be consulted to evaluate patient's swallowing mechanism. I seriously doubt this patient's family will be willing to proceed with a PEG tube which in this case would not beneficial. Hospice is maybe something that might be needed to be discussed prior to patient's departure. cc: Anamika Brewer MD MTDD
[2018-07-17] MEDS: HALDOL IM PRN ×3 (06:22→22:36)
--- NOTE | 2018-07-17 07:19 | Diag Imaging Result Doc PS360 ---
EXAM: CHEST-1 VIEW INDICATION: cough TECHNIQUE: One view COMPARISON: 06/30/2018 FINDINGS: There are mild increased lung markings at the medial left lung base behind the heart border. It is fairly similar to the previous study, however. A mild infiltrate is possible. There is no discrete pleural fluid collection or pneumothorax. Cardiac silhouette and central vasculature are essentially unremarkable. IMPRESSION: Mild increased opacity at the medial left lung base suggesting possible mild infiltrate. Electronically signed by Shelton Serna 07/17/2018 7:16 AM
--- NOTE | 2018-07-17 07:25 | EKG Report ---
Test Performed on : 07/16/2018 10:53:47 PM Test Reason : dyspnea Blood Pressure : / mmHG Vent. Rate : 112 BPM Atrial Rate : 112 BPM P-R Int : 130 ms QRS Dur : 084 ms QT Int : 344 ms P-R-T Axes : 082 048 065 degrees QTc Int : 469 ms Sinus tachycardia. with occasional premature ventricular complexes. Otherwise normal ECG When compared with ECG of 27-JUN-2018 17:35, premature ventricular complexes. are now present Unconfirmed Result
[2018-07-17] MEDS: DUONEB (A & A) INH PRN ×4 (08:14→19:40)
[2018-07-17] MEDS: ZOSYN 3.375 GM in NS 50 ML IV SCH ×3 (08:47→22:36)
[2018-07-17] MEDS: LOVENOX SUBQ SCH (08:47)
[2018-07-17] MEDS: SENOKOT PO SCH ×2 (08:48→22:36)
--- NOTE | 2018-07-17 12:17 | PROGRESS NOTE ---
DATE: 07/17/2018 SUBJECTIVE: This morning Mr. Brown continues to be fairly the same. He is nonverbal. The daughter who was at the bedside provided most of the interim history. Briefly, Mr. Brown is a resident of [facility], who was brought in because of low-grade fever and some chest congestion. Chest x-ray shows some pneumonia and was subsequently admitted. He does have an end- stage dementia. OBJECTIVE: Vital Signs: Blood pressure 150/85, pulse 86, respirations 14, temperature is 98.9 degrees. Patient was saturating about 99% on 2 L. General: Mr. Brown is a 77-year-old gentleman. He was in bed in no distress. HEENT: Mucosa is pink and slightly dry. Anicteric. Acyanotic. Neck: Supple. Chest: Air entry bilaterally reduced. There were some crackles posteriorly. Cardiovascular: Regular rate and rhythm. No murmurs, no rubs, no gallops. Abdomen: Soft. Bowel sounds present. There was no hepatosplenomegaly. Extremities: No pedal edema. ORTHOTIC AIDE: The patient is awake and is nonfocal, just moves extremities all over the place. He is nonverbal. He does not follow any commands. DIAGNOSTIC DATA: 1. Laboratory data from yesterday has all been reviewed. 2. A chest x-ray did show mild increased opacity in the medial left lung base suggestive of possible mild infiltrates. ASSESSMENT: 1. Sepsis on presentation secondary to left middle lobe pneumonia. Patient is currently on IV antibiotics. Blood cultures have been done. We will be waiting on the results. 2. Clinical volume depletion. The patient is on IV fluids. 3. Troponin elevation likely due to demand mismatch. Repeat has normalized. 4. History of advanced Alzheimer's dementia. There is a concern for possibly the mental status getting worse as part of the hospital course. Daughter has been notified about that possibility. 5. Resident of [facility] noted. cc: Saul Bagley MD
[2018-07-17] MEDS: OFIRMEV 1000 MG/ISOTONIC SOLN 1,000 MG/100 ML BOTTLE IV PRN (14:14)
[2018-07-17 14:33] LABS: AGAP 10; BUN 31 mg/dL (8-22); CALCIUM 8.4 mg/dL (8.8-10.2); CHLORIDE 113 mmol/L (98-107); COSMO 301; ESTIMATED GFR > 60; GLUCOSE 107 mg/dL (70-104); POTASSIUM 4.1 mmol/L (3.5-5.1); SODIUM 148 mmol/L (136-145); TCO2 25 mmol/L (25-35)
[2018-07-17] MEDS: D5 1/4 NS 1,000 ML IV SCH (17:41)
[2018-07-18] MEDS: HALDOL IM PRN (02:41)
[2018-07-18] MEDS: OFIRMEV 1000 MG/ISOTONIC SOLN 1,000 MG/100 ML BOTTLE IV PRN ×2 (02:45→09:14)
[2018-07-18] MEDS: ZOSYN 3.375 GM in NS 50 ML IV SCH ×4 (05:08→21:42)
[2018-07-18 07:34] LABS: BASO# 0.03 X1000 (0.0-0.2); BASO% 0.3 % (0.0-0.8); EOS# 0.28 X1000 (0.0-0.7); EOS% 3.1 % (0.0-10.0); HEMOGLOBIN 7.2 g/dL (14.0-18.0); IMM GRAN# 0.04 X1000 (0.0-0.04); IMM GRAN% 0.4 % (0.0-0.5); LYMPH# 1.27 X1000 (1.2-3.4); MCH 26.2 PG (27-31); MCV 87.3 FL (81-99); MONO# 1.08 X1000 (0.11-0.59); MONO% 11.9 % (1.7-9.3); NEUT# 6.39 X1000 (1.4-6.5); NEUT% 70.3 % (42.2-75.2); PLT 576 X1000 (130-400); RBC 2.75 XMIL (4.7-6.1); RDW 14.7 % (11.5-14.5); WBC 9.09 X1000 (4.8-10.8)
[2018-07-18 07:40] LABS: AGAP 9; BUN 24 mg/dL (8-22); CALCIUM 8.6 mg/dL (8.8-10.2); CHLORIDE 112 mmol/L (98-107); COSMO 294; CREATININE 0.8 mg/dL (0.7-1.2); ESTIMATED GFR > 60; GLUCOSE 122 mg/dL (70-104); POTASSIUM 3.5 mmol/L (3.5-5.1); SODIUM 145 mmol/L (136-145); TCO2 24 mmol/L (25-35)
[2018-07-18] MEDS: DUONEB (A & A) INH PRN ×4 (08:00→19:55)
[2018-07-18] MEDS: LOVENOX SUBQ SCH (08:46)
[2018-07-18] MEDS: SENOKOT PO SCH ×3 (08:47→21:18)
[2018-07-18] MEDS: D5 1/4 NS 1,000 ML IV SCH (08:51)
--- NOTE | 2018-07-18 11:48 | PROGRESS NOTE ---
DATE: 07/18/2018 SUBJECTIVE: This morning, Mr. Brown refers to be feeling a lot better. He looks more interactant. He looks more conversational than yesterday. The daughter was at the bedside at the time of the encounter and she also concurs that the father seems to be doing a lot better. OBJECTIVE: Vital signs: Blood pressure is 147/78, pulse 82, respirations 14, temperature is 97.5 degrees. General: Mr. Brown is a 77-year-old gentleman who is in bed. He did not seem to be in any cardiopulmonary distress. Mucosa is pink, still slightly dry. Anicteric. Acyanotic. Neck: Supple. Chest: Clear to auscultation. There were no crepitations. No rhonchi. Cardiovascular: Regular rate and rhythm. No murmurs, no rubs, no gallops. GI: Abdomen soft, nontender. There was no hepatosplenomegaly. Extremities: No pedal edema. ICEBOX MAN: Patient was awake, alert, but does not really follow any commands. He seems pleasantly confused. He would move all his extremities upon painful stimulation. LABORATORY DATA: WBC is down to 9.09, hemoglobin is 7.2, platelet count of 576,000. Chemistry is also reviewed. Sodium is down to 145, potassium is 3.5, chloride is 113. ASSESSMENT: 1. Sepsis on presentation secondary to left middle lobe pneumonia. Patient is currently on IV antibiotics. So far, blood culture has been 48 hours negative. Influenza was also negative. 2. Altered mental status secondary to infectious and metabolic encephalopathy, improving. Patient does have a baseline severe Alzheimer's disease, which he seems to be now at baseline. 3. Clinical volume depletion improving. Sodium has normalized. 4. Advanced Alzheimer's dementia. 5. Normocytic anemia. We will repeat. I think all the numbers have reduced, which could be all dilutional, but we will repeat the hemoglobin around 3:00 this evening. If it continues to decline, we will transfuse him. We will also do iron studies and supplement that if needed. 6. Generalized weakness and deconditioning. We have consulted Physical Therapy to evaluate him. cc: Saul Bagley MD
[2018-07-18 11:56] LABS: IRON SATURATION 13 %; TIBC 113 ug/dL; TOTAL IRON 15 ug/dL (53-167); UNBOUND IRON 98 ug/dL (112-346)
[2018-07-18 15:30] LABS: HEMATOCRIT 23.1 % (42.0-52.0)
[2018-07-18] MEDS ORDERED: VANCOMYCIN 1,450 MG in NS 250 ML IV SCH (17:00)
[2018-07-19] MEDS: HALDOL IM PRN (00:13)
[2018-07-19] MEDS: D5 1/4 NS 1,000 ML IV SCH ×3 (01:18→09:31)
[2018-07-19] MEDS: ZOSYN 3.375 GM in NS 50 ML IV SCH ×2 (04:00→09:36)
[2018-07-19 08:04] LABS: BASO# 0.02 X1000 (0.0-0.2); BASO% 0.3 % (0.0-0.8); EOS% 2.5 % (0.0-10.0); HEMOGLOBIN 7.2 g/dL (14.0-18.0); IMM GRAN# 0.08 X1000 (0.0-0.04); LYMPH# 1.22 X1000 (1.2-3.4); LYMPH% 15.5 % (20.5-51.1); MCH 25.7 PG (27-31); MCV 85.7 FL (81-99); MONO% 15.2 % (1.7-9.3); MPV 9.2 FL (7.4-10.4); NEUT# 5.17 X1000 (1.4-6.5); NEUT% 65.5 % (42.2-75.2); PLT 558 X1000 (130-400); RDW 14.6 % (11.5-14.5); WBC 7.89 X1000 (4.8-10.8)
[2018-07-19 08:13] LABS: AGAP 7; BUN 14 mg/dL (8-22); CALCIUM 7.9 mg/dL (8.8-10.2); CHLORIDE 109 mmol/L (98-107); COSMO 281; CREATININE 0.8 mg/dL (0.7-1.2); ESTIMATED GFR > 60; GLUCOSE 115 mg/dL (70-104); POTASSIUM 3.5 mmol/L (3.5-5.1); SODIUM 140 mmol/L (136-145); TCO2 24 mmol/L (25-35)
[2018-07-19] MEDS ORDERED: NS 100 ML ONE (09:17)
[2018-07-19] MEDS ORDERED: ZOSYN ONE (09:17)
[2018-07-19] MEDS: LOVENOX SUBQ SCH (09:31)
[2018-07-19] MEDS: SENOKOT PO SCH (09:32)
[2018-07-19 12:07] VITALS: BP 165/71
--- NOTE | 2018-07-19 13:00 | DISCHARGE SUMMARY ---
ADMISSION DATE: 07/17/2018 DISCHARGE DATE: 07/19/2018 DISPOSITION: Back to [facility]. FOLLOWUP: Followup will be with the patient's PCP, Dr. Shelton Allen. CONSULTATIONS DURING THIS ADMISSION: None. INVASIVE PROCEDURES DONE DURING THIS ADMISSION: None. IMAGING STUDIES: A chest x-ray was done, which showed mild increased opacity at the medial left lung base suggesting possible mild infiltrates. ADMISSION DIAGNOSES: 1. Possible aspiration pneumonia. 2. Severe dehydration. 3. Alzheimer's dementia. 4. History of hypertension. 5. Severe malnutrition. DISCHARGE DIAGNOSES: 1. Sepsis on presentation secondary to left middle lobe pneumonia. 2. Institution-associated pneumonia. 3. Altered mental status on presentation secondary to infectious and metabolic encephalopathy, improved. 4. Advanced Alzheimer's dementia. 5. Clinical volume depletion, improved. 6. Normocytic anemia. 7. Generalized weakness and deconditioning. 8. Hypernatremia on presentation, resolved. DISCHARGE MEDICATIONS: 1. Amlodipine 5 mg p.o. at bedtime. 2. Atorvastatin 40 mg daily. 3. Donepezil 5 mg daily. 4. Escitalopram 5 mg daily. 5. Lisinopril 20 mg daily. 6. Memantine 5 mg daily. 7. Pantoprazole 40 mg b.i.d. 8. Oxycodone. 9. Klonopin. 10. Augmentin 600 mg b.i.d. 11. Doxycycline 100 mg b.i.d. CHIEF COMPLAINT: Two-day history of cough, fever, chest congestion. HISTORY OF PRESENTING COMPLAINT: Mr. Brown is a 77-year-old gentleman with a prior history of CVA, hypertension, dyslipidemia, who presented to the emergency department because of cough, fever, chest congestion. A chest x-ray did reveal a left medial lobe infiltrate, which was suggestive of pneumonia. The patient was subsequently admitted for further medical care. HOSPITAL COURSE: Mr. Brown was admitted. Initially, blood cultures were done. The patient was started on IV antibiotics and was started on IV fluids for hydration purposes. During the hospital course, the blood culture came back negative. The patient's hemoglobin also continues to decline, partly I think because it was dilutional. Occult blood testing was done, which was negative. This morning, her blood count seems to be going up. Iron studies were done, which were consistent with anemia of chronic disease. Mr. Brown was also seen by Physical Therapy. He did eat some of his meals while he was here in the hospital, and had regular bowel movement as per documentations. This morning, Mr. Brown continues to be more alert. However, does have his baseline severe dementia. He looks well hydrated. Blood pressure is 165/71, pulse is 90, respirations 16, temperature 98.4 degrees. Physical exam is unremarkable. We think he is back to his baseline, stable enough to go back to the detention. Blood cultures have been negative, and influenza was also negative. He is going to be discharged on oral antibiotics to complete a total of 7 days, and he is also supposed to repeat his CBC to follow up on the hemoglobin and chemistry to follow up on sodium and general hydration status. All these discharge instructions were discussed with the and the daughter, who were at the bedside at the time of the encounter. TIME SPENT: Time spent for discharge was 37 minutes. cc: MD Shelton Sexton MD
== END 2018-07-19 15:04 | DRG 871 ==
LOC: SUPCPDRO → ED 22:03 → 3N 07-17 01:39 → SUATTDRO 07-17 01:39
PROVIDERS: ATTEND Internal Medicine
CPT/HCPCS: 51701; 71010; 71045; 80048; 81001; 82272; 82607; 82728; 82746; 83540; 83550; 83605; 84484; 85014; 85018; 85025; 86850; 86900; 86901; 86920; 87040; 87275; 87276; 87804; 93005; 94640; 94761; 96365; 96367; 96375; 99285; A9270; J0131; J0696; J1630; J1650; J2543; J3370; J7030; J7040; J7050; P9612